=== PATIENT | male | born 1975 | race Caucasian/White ===

== ENCOUNTER → 2017-03-26 | Outpatient (CLI) | payer OTHER ==
--- NOTE | 2017-03-26 10:06 | RADIOLOGY REPORT PS360 ---
EXAM: LUMBAR SPINE 5 VIEWS HISTORY: LOW BACK PAIN ORDERING PHYSICIAN: REFERRAL PATIENT AGE: 41 years COMPARISON: None FINDINGS: Normal alignment. No fracture or dislocation. No lytic or blastic change. There is minimal osteophyte formation along the superior aspect of L4. There is sclerosis of the SI joints on both sides. IMPRESSION: 1. Bilateral sacroiliitis 2. Otherwise negative
== END ==
LOC: RAD 07:07
DX: M45.7 Ankylosing spondylitis of lumbosacral region (principal); M51.26 Other intervertebral disc displacement, lumbar region